=== PATIENT | male | born 1995 | race Two or more races ===

== ENCOUNTER 2021-04-04 00:10 | Inpatient (IN) | payer MEDICAID ==
[~2021-04-04] VITALS: Ht 165.1 cm; Wt 74.4 kg
[~2021-04-04 00:10] MED LIST: ACETAMINOPHEN 325 MG TABLET PO PRN
[2021-04-04 02:35] VITALS: BP 102/65
[2021-04-04] MEDS ORDERED: AZITHROMYCIN 500 MG in IV D5W 250 ML IV SCH (03:00)
[2021-04-04] MEDS ORDERED: ONDANSETRON HCL/PF 4 MG/2 ML VIAL IVP PRN (03:00)
[2021-04-04] MEDS ORDERED: CEFTRIAXONE 1 G in IV D5W 50 ML IV SCH ×2 (03:00→04:00)
--- NOTE | 2021-04-04 03:15 | NUR ---
ADMIT NOTE DIRECT ADMIT FROM [facility], VIA GURNEY. PATIENT PLACED IN ROOM 103. PATIENT IN DROPLET ISOLATION DUE TO POSITIVE COVID-19 FROM [place]. ISOLATION PRECAUTIONS OBSERVED. PATIENT IS ALERT AND ORIENTED X4, ABLE TO MAKE NEEDS KNOWN. ON O2 2L VIA NASAL CANNULA, O2 SAT 99%. NO SIGNS OF RESPIRATORY DISTRESS. DENIES ANY PAIN OR DISCOMFORT AT THIS TIME. PATIENT STATED BODY ACHES RELIEVED FROM TYLENOL TAKEN AT [place]. TELE MONITOR ON, HR 65. IV ACCESS ON RIGHT AC #22, PATENT AND INTACT. SKIN ASSESSMENT DONE, SKIN IS INTACT. VITAL SIGNS STABLE. ORIENTED PATIENT TO ROOM AND CALL LIGHT. BED LOCKED AND IN LOWEST POSITION. SAFETY MEASURES MAINTAINED. ALL NEEDS ANTICIPATED.
[2021-04-04] MEDS ORDERED: ALBUTEROL FS 2.5 MG/3 ML VIAL.NEB NEB PRN (03:30)
--- NOTE | 2021-04-04 03:30 | NUR ---
NOTIFIED DEVANG ADAIR, PATIENT RECEIVED DOSE OF ROCEPHIN AND AZITHROMYCIN @0955 AT [facility] LAST NIGHT WITH NEW ORDERS. [facility] MADE AWARE.
[2021-04-04 04:00] VITALS: BP 106/60
[2021-04-04 05:58] LABS: BASOPHILS % (AUTO) 0.1 % (0.0-2.0); HEMATOCRIT 42 % (39-51); LYMPHOCYTES # (AUTO) 0.3 K/uL (0.8-4.8); LYMPHOCYTES % (AUTO) 11.7 % (20.0-44.0); MEAN CORPUSCULAR HGB CONC 34 g/dl (31.0-36.0); MEAN CORPUSCULAR VOLUME 91 fL (80-96); MONOCYTES # (AUTO) 0.2 K/uL (0.1-1.30); MONOCYTES % (AUTO) 5.7 % (2.0-12.0); NEUTROPHILS # (AUTO) 2.3 K/uL (1.8-8.9); NEUTROPHILS % (AUTO) 82.5 % (43.0-81.0); PLATELET COUNT (AUTO) 191 K/uL (150-450); RED BLOOD CELL COUNT(AUTO) 4.59 MIL/uL (4.5-6.0); WHITE BLOOD COUNT (AUTO) 2.8 K/uL (4.3-11.0)
[2021-04-04 06:31] LABS: FERRITIN 630 ng/mL (8-388)
--- NOTE | 2021-04-04 06:40 | NUR ---
RN NOTE PATIENT IS ALERT AND ORIENTED X4, ABLE TO MAKE NEEDS KNOWN. ON O2 2L VIA NASAL CANNULA, O2 SAT 98%. NO SIGNS OF RESPIRATORY DISTRESS. DENIES ANY PAIN OR DISCOMFORT AT THIS TIME. TELE MONITOR ON, HR 72. IV ACCESS ON RIGHT AC #22, PATENT AND INTACT. BED LOCKED AND IN LOWEST POSITION. SAFETY MEASURES MAINTAINED. WILL ENDORSE TO AM SHIFT.
[2021-04-04 07:00] LABS: ALANINE AMINOTRANSFERASE 65 U/L (12-78); ALBUMIN 3.2 g/dL (3.4-5.0); ALKALINE PHOSPHATASE 22 U/L (46-116); ASPARTATE AMINOTRANSFERASE 53 U/L (15-37); BILIRUBIN,TOTAL 0.3 mg/dL (0.2-1.0); CALCIUM, SERUM 8.7 mg/dL (8.5-10.1); CARBON DIOXIDE 29 mmol/L (21-32); CHLORIDE 101 mmol/L (98-107); CREATININE 0.8 mg/dL (0.6-1.3); GLUCOSE 149 mg/dL (74-106); SODIUM SERUM 139 mmol/L (136-145); TOTAL PROTEIN, SERUM 7.9 g/dL (6.4-8.2); UREA NITROGEN, BLOOD 11 mg/dL (7-18)
--- NOTE | 2021-04-04 07:48 | NUR ---
RN OPENING NOTE RECEIVED PATIENT ASLEEP IN BED, EASY TO AROUSE. ALERT AND ORIENTED X4. ABLE TO MAKE NEEDS KNOWN. NO SIGNS OR SYMPTOMS OF DISTRESS NOTED. DENIES PAIN OR DISCOMFORT AT THIS TIME. ON O2 2L NASAL CANNULA, TOLERATING WELL. IV ACCESS ON RAC#22, PATENT AND INTACT. SAFETY MEASURES IN PLACE WITH BED LOCKED AT LOWEST POSITION, SIDE RAILS UP X2. CALL LIGHT AND TABLE WITHIN REACH. WILL CONTINUE TO MONITOR PATIENT THROUGHOUT SHIFT.
[2021-04-04 08:00] VITALS: BP 109/68
[2021-04-04] MEDS: PANTOPRAZOLE 40 MG TABLET.DR PO SCH (08:26)
[2021-04-04 09:19] LABS: BILIRUBIN,DIRECT 0.2 mg/dL (0.0-0.2)
[2021-04-04] MEDS: DEXAMETHASONE SOD PHOSPHATE 10 MG/ML VIAL IV SCH (09:20)
[2021-04-04 09:47] LABS: ABG BASE EXCESS -3.2 mmol/L; ABG OXYGEN SATURATION 97.2 % (92.0-98.5); ABG PCO2 27.9 mmHg (35.0-45.0); ABG PH 7.455 (7.350-7.450); ABG PO2 90.5 mmHg (75.0-100.0); AaDO2 76.2 mmHg; COHb 0.4 % (0.5-1.5); MetHb 0.2 % (0.0-1.5); O2Hb 96.6 % (94.0-97.0); SITE, ABG Right Radial
[2021-04-04] MEDS: ENOXAPARIN SODIUM 40 MG/0.4 ML DISP.SYRIN SQ SCH (10:10)
[2021-04-04] MEDS ORDERED: REMDESIVIR (CHARGED) 200 MG, *LOADING DOSE 1 EA in IV NS 0.9% 210 ML IV ONE (10:30)
[2021-04-04 12:00] VITALS: BP 105/65
[2021-04-04 16:06] VITALS: BP 107/71
[2021-04-04] MEDS: REMDESIVIR (CHARGED) 100 MG in IV NS 0.9% 100 ML IV SCH (18:08)
--- NOTE | 2021-04-04 19:35 | NUR ---
RN NOTE PATIENT IS ALERT AND ORIENTED X4, ABLE TO MAKE NEEDS KNOWN. ON O2 2L VIA NASAL CANNULA, O2 SAT 98%. NO SIGNS OF RESPIRATORY DISTRESS. DENIES ANY PAIN OR DISCOMFORT AT THIS TIME. TELE MONITOR ON, HR 70'S. IV ACCESS ON RIGHT AC #22, PATENT AND INTACT. ON DROPLET ISOLATION DUE TO POSITIVE COVID-19, PRECAUTIONS OBSERVED. BED LOCKED AND IN LOWEST POSITION. SAFETY MEASURES MAINTAINED. ALL NEEDS ANTICIPATED.
[2021-04-04 20:00] VITALS: BP 106/65
[2021-04-05] VITALS: BP 108/62
[2021-04-05] MEDS: AZITHROMYCIN 500 MG in IV D5W 250 ML IV SCH (02:54)
[2021-04-05 04:00] VITALS: BP 105/44
[2021-04-05] MEDS: CEFTRIAXONE 1 G in IV D5W 50 ML IV SCH (04:05)
[2021-04-05 06:10] LABS: BASOPHILS % (AUTO) 0.1 % (0.0-2.0); HEMATOCRIT 45 % (39-51); HEMOGLOBIN 14.9 g/dL (13.5-17.5); LYMPHOCYTES # (AUTO) 0.5 K/uL (0.8-4.8); LYMPHOCYTES % (AUTO) 7.2 % (20.0-44.0); MEAN CORPUSCULAR HGB CONC 33 g/dl (31.0-36.0); MEAN CORPUSCULAR VOLUME 92 fL (80-96); MONOCYTES # (AUTO) 0.7 K/uL (0.1-1.30); MONOCYTES % (AUTO) 9.8 % (2.0-12.0); NEUTROPHILS # (AUTO) 6.1 K/uL (1.8-8.9); NEUTROPHILS % (AUTO) 82.9 % (43.0-81.0); PLATELET COUNT (AUTO) 279 K/uL (150-450); RED BLOOD CELL COUNT(AUTO) 4.91 MIL/uL (4.5-6.0); WHITE BLOOD COUNT (AUTO) 7.4 K/uL (4.3-11.0)
[2021-04-05 06:24] LABS: ALBUMIN 3.4 g/dL (3.4-5.0); BILIRUBIN,DIRECT 0.1 mg/dL (0.0-0.2); BILIRUBIN,TOTAL 0.3 mg/dL (0.2-1.0); CALCIUM, SERUM 8.8 mg/dL (8.5-10.1); CREATININE 0.8 mg/dL (0.6-1.3); MAGNESIUM 2.6 mg/dL (1.8-2.4); POTASSIUM 3.9 mmol/L (3.5-5.1); TOTAL PROTEIN, SERUM 8.3 g/dL (6.4-8.2)
[2021-04-05 06:25] LABS: C-REACTIVE PROTEIN 8.7 mg/dL (0.0-0.9)
--- NOTE | 2021-04-05 07:19 | NUR ---
RN NOTE PATIENT IS ALERT AND ORIENTED X4. ON O2 2L VIA NASAL CANNULA, O2 SAT 96%. NO SIGNS OF RESPIRATORY DISTRESS. DENIES ANY PAIN OR DISCOMFORT AT THIS TIME. TELE MONITOR ON, HR 70'S. IV ACCESS ON RIGHT AC #22, PATENT AND INTACT. ON DROPLET ISOLATION DUE TO POSITIVE COVID-19, PRECAUTIONS OBSERVED. ALL DUE MEDS GIVEN ORDERED. BED LOCKED AND IN LOWEST POSITION. SAFETY MEASURES MAINTAINED. ENDORSED TO AM SHIFT.
--- NOTE | 2021-04-05 07:30 | NUR ---
RN NOTES Patient is alert and oriented. No c/o pain or discomfort. Isolation observed. On 2 liters 02 via nc with 02 sat of 100%. HOB kept elevated. Call light with in reach.
[2021-04-05 08:00] VITALS: BP 97/58
[2021-04-05] MEDS: PANTOPRAZOLE 40 MG TABLET.DR PO SCH (09:18)
[2021-04-05] MEDS: DEXAMETHASONE SOD PHOSPHATE 10 MG/ML VIAL IV SCH (09:18)
[2021-04-05] MEDS: ENOXAPARIN SODIUM 40 MG/0.4 ML DISP.SYRIN SQ SCH (09:27)
[2021-04-05 12:00] VITALS: BP 95/55
[2021-04-05 16:00] VITALS: BP 93/60
[2021-04-05] MEDS: REMDESIVIR (CHARGED) 100 MG in IV NS 0.9% 100 ML IV SCH (17:53)
--- NOTE | 2021-04-05 19:10 | NUR ---
RN NOTE RECEIVED PATIENT IN BED RESTING ALERT ORIENTED X4 ON 2L OXYGEN VIA NASAL CANNULA,O2:97% IV SITE IS ON RIGHT AC INTACT PATENT AMBULATORY CONTINENT TO BOWEL/BLADDER SAFETY MEASURE IMPLEMENTED CALL LIGHT WITHIN REACH CONTINUE TO MONITOR.
--- NOTE | 2021-04-05 19:15 | NUR ---
RN CLOSING NOTES Patient is alert and oriented. No c/o pain or discomfort. Isolation observed. On 2 liters 02 via nc with 02 sat of 98%. HOB kept elevated. Call light with in reach. Endorsed to next shift for sarah.
[2021-04-05 20:00] VITALS: BP 102/64
[2021-04-06] VITALS: BP 95/61
[2021-04-06] MEDS: AZITHROMYCIN 500 MG in IV D5W 250 ML IV SCH (02:52)
[2021-04-06] MEDS: CEFTRIAXONE 1 G in IV D5W 50 ML IV SCH (03:38)
[2021-04-06 04:00] VITALS: BP 100/67
--- NOTE | 2021-04-06 04:29 | NUR ---
RN NOTE PATIENT COMPLINES OF RIGHT ARM PAIN UPON ASSESSMENT IV SITE IS INFILTRATED REMOVED IT,COOL MEASURE PROVIDED, AND STARTED A NEW IV LINE ON LEFT FOREARM #22 WITH GOOD BLOOD RETURN CONTINUE TO MONITOR
[2021-04-06 06:07] LABS: BASOPHILS % (AUTO) 0.1 % (0.0-2.0); HEMATOCRIT 39 % (39-51); HEMOGLOBIN 13.3 g/dL (13.5-17.5); LYMPHOCYTES % (AUTO) 9.4 % (20.0-44.0); MEAN CORPUSCULAR HGB CONC 34 g/dl (31.0-36.0); MEAN CORPUSCULAR VOLUME 90 fL (80-96); MONOCYTES # (AUTO) 0.8 K/uL (0.1-1.30); MONOCYTES % (AUTO) 7.8 % (2.0-12.0); NEUTROPHILS # (AUTO) 8.6 K/uL (1.8-8.9); NEUTROPHILS % (AUTO) 82.7 % (43.0-81.0); PLATELET COUNT (AUTO) 311 K/uL (150-450); RED BLOOD CELL COUNT(AUTO) 4.37 MIL/uL (4.5-6.0); WHITE BLOOD COUNT (AUTO) 10.5 K/uL (4.3-11.0)
[2021-04-06 06:53] LABS: BILIRUBIN,DIRECT 0.1 mg/dL (0.0-0.2); BILIRUBIN,TOTAL 0.3 mg/dL (0.2-1.0); CALCIUM, SERUM 8.1 mg/dL (8.5-10.1); CREATININE 0.7 mg/dL (0.6-1.3); TOTAL PROTEIN, SERUM 6.9 g/dL (6.4-8.2)
[2021-04-06 07:19] LABS: POTASSIUM 3.6 mmol/L (3.5-5.1)
--- NOTE | 2021-04-06 07:22 | NUR ---
RN NOTE PATIENT REMAINS ON ALERT ORIENTED X4 VERBALLY RESPONSIVE NO SOB NOT ACUTE DISTRESS NOTED ALL DUE MEDS GIVEN MD ORDERED ENDORSE NEXT SHIFT FOR CONTINUATION OF CARE.
--- NOTE | 2021-04-06 07:50 | NUR ---
RN OPENING NOTES Patient is alert and oriented. No c/o pain or discomfort. Isolation observed. On 2 liters 02 via nc with 02 sat of 98%. HOB kept elevated. Call light with in reach. Will continue to monitor. Call light with in reach.
[2021-04-06 08:00] VITALS: BP 105/62
[2021-04-06] MEDS: DEXAMETHASONE SOD PHOSPHATE 10 MG/ML VIAL IV SCH (10:56)
[2021-04-06] MEDS: PANTOPRAZOLE 40 MG TABLET.DR PO SCH (10:56)
[2021-04-06] MEDS: ENOXAPARIN SODIUM 40 MG/0.4 ML DISP.SYRIN SQ SCH (11:18)
[2021-04-06 12:00] VITALS: BP 96/58
[2021-04-06 16:00] VITALS: BP 99/64
[2021-04-06] MEDS: REMDESIVIR (CHARGED) 100 MG in IV NS 0.9% 100 ML IV SCH (17:55)
--- NOTE | 2021-04-06 19:15 | NUR ---
RN OPENING NOTE RECEIVED PATIENT AWAKE IN BED, EASY TO AROUSE. ALERT AND ORIENTED X4. ABLE TO MAKE NEEDS KNOWN. NO SIGNS OR SYMPTOMS OF DISTRESS NOTED. DENIES PAIN OR DISCOMFORT AT THIS TIME. ON O2 1L NASAL CANNULA, TOLERATING WELL. IV ACCESS ON (R) AC#22, PATENT AND INTACT. SAFETY MEASURES IN PLACE WITH BED LOCKED AT LOWEST POSITION, SIDE RAILS UP X2. CALL LIGHT AND TABLE WITHIN REACH. MEDICATION REGIMEN AND MD ORDERS WILL BE FOLLOWED ORDERED.
--- NOTE | 2021-04-06 19:36 | NUR ---
RN CLOSING NOTES Patient is alert and oriented. No c/o pain or discomfort. Isolation observed. On 2 liters 02 via nc with 02 sat of 96%. HOB kept elevated. Call light with in reach. Will continue to monitor. Call light with in reach.Endorsed to next shift for MARY LOU
[2021-04-06 20:00] VITALS: BP 116/70
[2021-04-07] MEDS: AZITHROMYCIN 500 MG in IV D5W 250 ML IV SCH (02:34)
[2021-04-07] MEDS: CEFTRIAXONE 1 G in IV D5W 50 ML IV SCH (03:40)
[2021-04-07 04:00] VITALS: BP 107/63
--- NOTE | 2021-04-07 06:42 | NUR ---
RN CLOSING NOTES PATIENT CURRENTLY STABLE RESTING IN BED. ALERT AND ORIENTED X4. ABLE TO MAKE NEEDS KNOWN THROUGHOUT SHIFT. AMBULATORY WITH STEADY GAIT OBSERVED. DENIES ANY PAIN. ON 1L 02 VIA NC, TOLERATING WELL WITH O2 SATURATIONS ABOVE 98%. NO SOB OR LABORED BREATHING NOTED. NO FEVER OR S/S OF INFECTION. ISOLATION PRECAUTIONS FOR COVID-19 OBSERVED. (L) FA 20G IV FLUSHED, PATENT AND INTACT. IV ABX MEDICATION REGIMEN FOLLOWED ORDERED AND TOLERATED WELL. PT. WAS ABLE TO REST THROUGHOUT MOST OF NIGHT. SAFETY MEASURES IMPLEMENTED. CALL LIGHT WITHIN REACH. BED LOWEST POSITION. NO ACUTE DISTRESS NOTED AT THIS TIME. WILL ENDORSE CONTINUITY OF CARE TO MORNING SHIFT RN.
[2021-04-07 07:11] LABS: BASOPHILS % (AUTO) 0.1 % (0.0-2.0); EOSINOPHILS % (AUTO) 0.2 % (0.0-6.0); HEMATOCRIT 42 % (39-51); HEMOGLOBIN 14.1 g/dL (13.5-17.5); LYMPHOCYTES # (AUTO) 1.3 K/uL (0.8-4.8); MEAN CORPUSCULAR HGB CONC 34 g/dl (31.0-36.0); MEAN CORPUSCULAR VOLUME 90 fL (80-96); MONOCYTES % (AUTO) 9.6 % (2.0-12.0); NEUTROPHILS % (AUTO) 77.1 % (43.0-81.0); PLATELET COUNT (AUTO) 393 K/uL (150-450); RED BLOOD CELL COUNT(AUTO) 4.63 MIL/uL (4.5-6.0); WHITE BLOOD COUNT (AUTO) 10.4 K/uL (4.3-11.0)
[2021-04-07 07:47] LABS: BILIRUBIN,DIRECT 0.1 mg/dL (0.0-0.2); BILIRUBIN,TOTAL 0.2 mg/dL (0.2-1.0); CALCIUM, SERUM 8.6 mg/dL (8.5-10.1); CREATININE 0.7 mg/dL (0.6-1.3); TOTAL PROTEIN, SERUM 7.3 g/dL (6.4-8.2)
--- NOTE | 2021-04-07 08:01 | NUR ---
RN CLOSING NOTES PATIENT RESTING IN BED. ALERT AND ORIENTED X4. ABLE TO MAKE NEEDS KNOWN DENIES ANY PAIN. ON ON RA AT THIS TIME TOLERATING WELL WIT NO SOB OR LABORED BREATHING NOTED. ISOLATION PRECAUTIONS FOR COVID-19 OBSERVED. (L) FA 20G IV FLUSHED, PATENT AND INTACT AND PATENT SAFETY MEASURES IMPLEMENTED. CALL LIGHT WITHIN REACH ABLE TO EAT BREAKFAST SELF , WILL MONITOR
[2021-04-07] MEDS: PANTOPRAZOLE 40 MG TABLET.DR PO SCH (08:19)
[2021-04-07] MEDS: ENOXAPARIN SODIUM 40 MG/0.4 ML DISP.SYRIN SQ SCH (08:20)
[2021-04-07] MEDS: DEXAMETHASONE SOD PHOSPHATE 10 MG/ML VIAL IV SCH (08:20)
--- NOTE | 2021-04-07 11:27 | NUR ---
MS RN NOTE ABLE TO TO BR , NO DISCOMFORT NOTED AT THIS TIME, ALL NEEDS ATTENDED
--- NOTE | 2021-04-07 14:34 | NUR ---
ms rn note up on chair not in distress
[2021-04-07 15:34] LABS: ALBUMIN 3.3 g/dL (3.4-5.0); BILIRUBIN,DIRECT 0.2 mg/dL (0.0-0.2); BILIRUBIN,TOTAL 0.3 mg/dL (0.2-1.0); TOTAL PROTEIN, SERUM 8.1 g/dL (6.4-8.2)
[2021-04-07 16:00] VITALS: BP 101/68
--- NOTE | 2021-04-07 18:28 | NUR ---
MS RN NOTE ATE 25% OF FOOD , ALL NEEDS ATTENDED, CALL LIGHT WITHIN REACH , WILL CONT TO MONITOR, NO SOB NOTED AT THIS TIME ,SAFETY MEASURE PROVIDED
[2021-04-07 20:00] VITALS: BP 101/69
--- NOTE | 2021-04-07 20:00 | NUR ---
MS RN OPENING NOTES Patient is awake, A&Ox4. Able to verbalize needs. Patient reports he has no SOB O2 sat 94% on RA. No respiratory distress seen either. IV to LFA is patent and intact. VSS. Will continue to monitor.
[2021-04-08 04:00] VITALS: BP 109/61
--- NOTE | 2021-04-08 06:21 | NUR ---
MS RN CLOSING NOTES Patient has been A&Ox4. VSS. Denies SOB, no signs of distress. Patient states he feels much much better than a few days ago. Drinking fluids well. Independent with self care. States most covid symptoms are resolved but feels a little fatigued. IV to LFA intact, patent, and flushed. No overnight events.
[2021-04-08 07:12] LABS: ALBUMIN 3.5 g/dL (3.4-5.0); BILIRUBIN,DIRECT 0.1 mg/dL (0.0-0.2); BILIRUBIN,TOTAL 0.4 mg/dL (0.2-1.0); CALCIUM, SERUM 8.9 mg/dL (8.5-10.1); CREATININE 0.9 mg/dL (0.6-1.3); POTASSIUM 3.9 mmol/L (3.5-5.1); TOTAL PROTEIN, SERUM 8.1 g/dL (6.4-8.2)
[2021-04-08 07:15] LABS: BASOPHILS % (AUTO) 0.1 % (0.0-2.0); EOSINOPHILS % (AUTO) 0.3 % (0.0-6.0); HEMATOCRIT 47 % (39-51); HEMOGLOBIN 15.7 g/dL (13.5-17.5); LYMPHOCYTES # (AUTO) 1.9 K/uL (0.8-4.8); LYMPHOCYTES % (AUTO) 20.1 % (20.0-44.0); MEAN CORPUSCULAR HGB CONC 34 g/dl (31.0-36.0); MEAN CORPUSCULAR VOLUME 90 fL (80-96); MONOCYTES % (AUTO) 10.1 % (2.0-12.0); NEUTROPHILS # (AUTO) 6.5 K/uL (1.8-8.9); NEUTROPHILS % (AUTO) 69.4 % (43.0-81.0); PLATELET COUNT (AUTO) 523 K/uL (150-450); RED BLOOD CELL COUNT(AUTO) 5.18 MIL/uL (4.5-6.0); WHITE BLOOD COUNT (AUTO) 9.4 K/uL (4.3-11.0)
[2021-04-08] MEDS: PANTOPRAZOLE 40 MG TABLET.DR PO SCH ×2 (07:52→08:09)
[2021-04-08] MEDS: ENOXAPARIN SODIUM 40 MG/0.4 ML DISP.SYRIN SQ SCH (08:21)
[2021-04-08] MEDS: DEXAMETHASONE SOD PHOSPHATE 10 MG/ML VIAL IV SCH (08:25)
[2021-04-08] MEDS ORDERED: AZITHROMYCIN 250 MG TABLET PO SCH (09:00)
[2021-04-08 10:17] VITALS: BP 108/64
[2021-04-08 12:54] VITALS: BP 110/68
--- NOTE | 2021-04-08 15:10 | NUR ---
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 THE IV SITE D/C AND ALL SAFETY MEASURES IN PLACE, SAFE TRANSFER ENCOURAGED TO DRINK PLENTY OF WATER AND FLUIDS AND TO TRY TO INCREASE AMOUNT OF SLEEP AND REST AND TO FOLLOW UP WITH MD IF ANY CHANGES IN CONDITION ARE NOTED.
== END 2021-04-08 13:46 | disposition home or self-care (01) | DRG 137 ==
LOC: TELE1 02:22 → MEDSG1 04-06 12:01
PROVIDERS: ADMIT Hospitalist; ATTEND Nurse Practitioner Acute Care
PROC: XW033E5 Introduction of Remdesivir Anti-infective into Peripheral Vein, Percutaneous Approach, New Technology Group 5 (ICD-10-PCS; principal; 2021-04-04)
DX: U07.1 COVID-19 (principal); J12.82 Pneumonia due to coronavirus disease 2019; E87.2 Acidosis; J15.9 Unspecified bacterial pneumonia; E88.09 Other disorders of plasma-protein metabolism, not elsewhere classified; E86.0 Dehydration; D72.810 Lymphocytopenia; R74.8 Abnormal levels of other serum enzymes; T50.995A Adverse effect of other drugs, medicaments and biological substances, initial encounter; Y92.230 Patient room in hospital as the place of occurrence of the external cause
CPT/HCPCS: 36415; 36600; 71045-TC; 71250-TC; 80048-TC; 80053-TC; 80076-TC; 82248-TC; 82728-TC; 83605-TC; 83615-TC; 83735-TC; 84100-TC; 85025-TC; 85378-TC; 85385-TC; 85610-TC; 85730-TC; 86140-TC; G0378; J0456; J0696; J1100; J1650; J7030; J7050; J7060